=== PATIENT | female | born 2000 | race African-American/Black ===

== ENCOUNTER 2020-03-31 20:18 | Emergency (ER) | payer OTHER ==
[2020-03-31] MEDS ORDERED: NORCO, ANEXSIA 5/325MG TABLET (HYDROcodone/ACETAMINOPHEN) As Ordered ONE (22:18)
[2020-03-31] MEDS ORDERED: NORCO, ANEXSIA 5/325MG TABLET (HYDROcodone/ACETAMINOPHEN) ONE (22:18)
[2020-03-31] MEDS ORDERED: DICYCLOMINE 10 MG CAP ONE (22:20)
[2020-03-31] MEDS ORDERED: DICYCLOMINE 10 MG CAP As Ordered ONE (22:20)
[2020-04-01] MEDS ORDERED: ISOVUE-370 76% 100ML VIAL As Ordered ONE (00:07)
[2020-04-01] MEDS ORDERED: NORCO 5/325MG TABLET (BULK FOR ED) ONE (01:45)
[2020-04-01] MEDS ORDERED: NORCO 5/325MG TABLET (BULK FOR ED) As Ordered ONE (01:45)
[2020-05-18 03:46] LABS: BASO % 0.3 % (0.0-1.0); EOS # 0.2 10^3/uL (0.0-0.5); EOS % 0.9 % (0.0-3.0); HEMATOCRIT 42.2 % (36.0-47.0); HEMOGLOBIN 14.2 g/dl (12.0-15.5); LYMPH # 2.9 10^3/uL (1.5-5.0); MEAN CORPUSCULAR HEMOGLOBIN 30.5 pg (27.0-33.0); MEAN CORPUSCULAR HGB CONC 33.6 g/dl (32.0-36.5); MEAN CORPUSCULAR VOLUME 90.8 fl (80.0-96.0); MONO # 0.8 10^3/uL (0.0-0.8); MONO % 4.9 % (0.0-5.0); NEUTROPHILS # 12.1 10^3/uL (1.5-8.5); NEUTROPHILS % 75.5 % (36.0-66.0); PLATELET COUNT, AUTOMATED 344 10^3/uL (150-450); RED BLOOD COUNT 4.65 10^6/uL (4.00-5.40)
[2020-05-18 03:59] LABS: APPEARANCE, URINE CLEAR (CLEAR); BACTERIA, URINE AUTO NEGATIVE (NEGATIVE); BILIRUBIN, URINE AUTO NEGATIVE (NEGATIVE); BLOOD, URINE BLOOD NEGATIVE (NEGATIVE); COLOR, URINE YELLOW (YELLOW); GLUCOSE, URINE (UA) AUTO NEGATIVE (NEGATIVE); KETONE, URINE AUTO NEGATIVE (NEGATIVE); LEUKOCYTE ESTERASE, URINE AUTO NEGATIVE (NEGATIVE); NITRITE, URINE AUTO NEGATIVE (NEGATIVE); PROTEIN, URINE AUTO NEGATIVE (NEGATIVE); RBC, URINE AUTO 1 /HPF (0-3); SPECIFIC GRAVITY URINE AUTO 1.016 (1.002-1.035); SQUAMOUS EPITHELIAL CELL UR AU 2 /HPF (0-6); UROBILINOGEN, URINE AUTO 0.2 mg/dL (0.0-2.0); WBC, URINE AUTO 0 /HPF (0-3)
[2020-06-09 00:58] LABS: HCG, SERUM QUALITATIVE NEGATIVE (NEGATIVE)
[2020-06-09 01:20] LABS: BLOOD UREA NITROGEN 10 MG/DL (7-18); CARBON DIOXIDE LEVEL 28 MEQ/L (21-32); CHLORIDE LEVEL 105 MEQ/L (98-107); CREATININE FOR GFR 0.81 MG/DL (0.55-1.30); GLUCOSE, FASTING 104 MG/DL (70-100); SODIUM LEVEL 136 MEQ/L (136-145)
== END 2020-04-01 02:00 | disposition home or self-care (01) ==
LOC: M ED 20:18
DX: N83.291 Other ovarian cyst, right side (principal); Z79.3 Long term (current) use of hormonal contraceptives
CPT/HCPCS: 74177; 76856; 80048; 81001; 84703; 85025; 93976; 99284; Q9967

== ENCOUNTER 2020-08-25 12:55 | Emergency (ER) | payer OTHER ==
[~2020-08-25] VITALS: Ht 160 cm; Wt 64.6 kg
[2020-08-25] MEDS ORDERED: KETOROLAC TROMETHAMINE 10 MG TAB PO ONE (15:30)
[2020-08-25 15:50] LABS: BASO % 0.2 % (0.0-1.0); EOS # 0.1 10^3/uL (0.0-0.5); EOS % 1.1 % (0.0-3.0); HEMATOCRIT 43.7 % (36.0-47.0); HEMOGLOBIN 14.8 g/dl (12.0-15.5); LYMPH # 2.9 10^3/uL (1.5-5.0); LYMPH % 27.1 % (24.0-44.0); MEAN CORPUSCULAR HEMOGLOBIN 30.9 pg (27.0-33.0); MEAN CORPUSCULAR HGB CONC 33.9 g/dl (32.0-36.5); MEAN CORPUSCULAR VOLUME 91.2 fl (80.0-96.0); MONO # 0.7 10^3/uL (0.0-0.8); MONO % 6.3 % (0.0-5.0); NEUTROPHILS # 6.9 10^3/uL (1.5-8.5); NEUTROPHILS % 65.2 % (36.0-66.0); PLATELET COUNT, AUTOMATED 367 10^3/uL (150-450); RED BLOOD COUNT 4.79 10^6/uL (4.00-5.40); WHITE BLOOD COUNT 10.6 10^3/uL (4.0-10.0)
--- NOTE | 2020-08-25 16:02 | REP ---
INDICATION: left pelvic pain/ hx cyst COMPARISON: 03/31/2020 TECHNIQUE: Transabdominal pelvic ultrasound with color Doppler evaluation of the ovaries. FINDINGS: Bladder is unremarkable and measures 7.0 x 6.1 x 4.6 cm. Normal anteverted uterus measures . The endometrial complex measures 5 mm thickness. No discrete uterine or endometrial abnormalities are appreciated. Bilateral ovaries are normal in vascularity without evidence for torsion. Right ovary measures 2.1 x 1.7 x 1.7 cm; R I = 0.78. Previously identified right ovarian cyst has resolved. Left ovary measures 7.7 x 6.2 x 6.7 cm and now includes new 6.6 x 5.6 x 6.1 cm complex presumed hemorrhagic cyst; R I = 0.53. No pelvic fluid or adnexal mass lesion otherwise noted. IMPRESSION: Relatively normal appearance to the uterus. Previously noted right ovarian cyst resolved. New large complex left hemorrhagic physiologic cyst. <Electronically signed by Rajeev Zacarias > 08/25/20 0609
[2020-08-25] MEDS ORDERED: KETO10TAB PO (16:13)
[2020-08-25 16:36] VITALS: BP 132/82
== END 2020-08-25 16:40 | disposition home or self-care (01) ==
LOC: M ED 12:55
DX: N83.202 Unspecified ovarian cyst, left side (principal); Z91.018 Allergy to other foods

== ENCOUNTER 2021-03-11 16:42 | Emergency (ER) | payer OTHER ==
[~2021-03-11] VITALS: Ht 162.6 cm; Wt 63.6 kg
[~2021-03-11 16:42] MED LIST: KETO10TAB PO
[2021-03-11 18:21] LABS: BASO % 0.2 % (0.0-1.0); EOS # 0.2 10^3/uL (0.0-0.5); EOS % 1.4 % (0.0-3.0); HEMOGLOBIN 13.3 g/dl (12.0-15.5); LYMPH # 3.4 10^3/uL (1.5-5.0); LYMPH % 25.4 % (24.0-44.0); MEAN CORPUSCULAR HEMOGLOBIN 30.7 pg (27.0-33.0); MEAN CORPUSCULAR HGB CONC 34.1 g/dl (32.0-36.5); MEAN CORPUSCULAR VOLUME 90.1 fl (80.0-96.0); MONO # 0.9 10^3/uL (0.0-0.8); MONO % 6.8 % (2.0-8.0); NEUTROPHILS # 8.8 10^3/uL (1.5-8.5); PLATELET COUNT, AUTOMATED 344 10^3/uL (150-450); RED BLOOD COUNT 4.33 10^6/uL (4.00-5.40); WHITE BLOOD COUNT 13.4 10^3/uL (4.0-10.0)
--- NOTE | 2021-03-11 18:38 | REP ---
INDICATION: bleeding vaginally/cramping. COMPARISON: None. TECHNIQUE: Transvesical scanning FINDINGS: Within the uterus there is an anechoic structure with increased echoes surrounding it consistent with a decidual reaction. Within the gestational sac there is echogenic material consistent with a pole the mean crown-rump length measurement of which is consistent with a 5 week 5 day gestational age. Based on that the EROS is 11/06/2021. Doppler interrogation of the pole shows a heart rate of 103 beats per minute. Also seen in the gestational sac is a yolk sac. There is no evidence of a chorionic or subchorionic abnormality. Within the right ovary there is a 2 cm sized area of increased echoes likely representing a hemorrhagic corpus luteum cyst. There is a trace amount of free fluid. IMPRESSION: Early OB ultrasound as described above. <Electronically signed by Miles Weller > 03/11/21 1222
[2021-03-11 19:16] VITALS: BP 136/71
[2021-03-11 20:18] LABS: GC DNA AMPLIFICATION NEGATIVE (NEGATIVE)
== END 2021-03-11 20:03 | disposition home or self-care (01) ==
LOC: M ED 16:42
DX: O46.91 Antepartum hemorrhage, unspecified, first trimester (principal); O34.81 Maternal care for other abnormalities of pelvic organs, first trimester; O26.891 Other specified pregnancy related conditions, first trimester; R10.9 Unspecified abdominal pain; R11.0 Nausea; Z3A.01 Less than 8 weeks gestation of pregnancy

== ENCOUNTER 2021-06-10 11:10 | Emergency (ER) | payer OTHER ==
[~2021-06-10] VITALS: Ht 162.6 cm; Wt 70.1 kg
--- OUTSIDE RECORDS SUMMARY | 2021-06-10 11:15 | CCD | Continuity of Care Document ---
Author Author [facility] Organization [facility] Address Unknown Phone Unavailable Care Team Providers Care Book Repairer Name Role Phone Evelin Farley Unavailable Unavailable Allergies, Adverse Reactions, Alerts Substance Reaction Status Criticality No Information Medications Medication Instructions Dosage Effective Dates (start - stop) Sta tus Comments No Drug Therapy Prescribed Problems Condition Effective Dates (start - stop) Clinical Status C omments Problems related to unwanted Encounter for oth general cnsl and advice on contraception Other sex counseling Encntr screen for infections w sexl mode of transmiss state, incidental Encounter for test, result positive Human immunodeficiency virus [HIV] counseling Procedures Procedure Date No Information Results Test Name Date and Time Measure Units Reference Range Abnormal Flag St atus Comments No Information Advance Directives Directive Yes / No Effective Date File Name No Information Encounters Encounter Description Practice Location Reason(s) For Visit Diagnose s Date Provider Providers Copied on Encounter [facility], [address] [place] [address], [id number], tel:[phone] KRIS [place] No Information Waldo Evelin. [address] [place] [address], [id number], . tel:[phone] [facility], [address] [place] [address], [id number], tel:[phone] KR[facility] [place] Problems related to unwanted pregnancyEncounter for oth general cnsl and advice on contraceptionOther sex counselingEncntr screen for infections w sexl mode of transmiss state, incidentalEncounter for test, result positiveHuman immunodeficiency virus [HIV] counseling Cathleen Ames. [address] [place], [place], [id number], . tel:[phone] Referring Provider: Magdamanas Connolly, [address] [place], [place], [id number]. tel:[phone] Family History Family Member Diagnosis Age At Onset 1st degree relative No hx of cancer of breast, colon, endome trium or ovary 1st degree relative No hx of coronary heart disease (female <65, male <55) 1st degree relative No hx of venous thromboembolism Immunizations Vaccine Date Status Comments No Information Payers Payer name Insurance type Covered alliance party ID Authorization(s ) Medicaid PENDING Presumptive [facility] Social History Type Description Quantity Date Captured Comments Alcohol Use Details Unknown Caffeine Use Details Unknown Tobacco Use Status No Information Smoking Status Never smoker Sex Female Vital Signs Date / Time: Height Weight BMI Pulse Rate Blood Pressure Temperatu re Respiratory Rate Body Surface Area Head Circumference BMI percentile Pulse Ox In haled Ox No Information Chief Complaint And Reason For Visit No Information Reason For Referral Reason For Referral No Information Plan Of Treatment Date Type Action Status No Information History Of Present Illness Encounter Date Complaint History Of Present I llness No Information Functional Status Date Functional Assessment No Information Medications Administered Medication Instructions Dosage Effective Dates (start - stop) Sta tus Comments No Drug Therapy Prescribed Instructions Date Instruction Additional Informati on No Information Assessments Type Assessment Date No Information Goals Health Concern Goal Type Priority Status Date No Information Medical Equipment Description Device Gallant Device Identifier Effective Patric es (start - stop) Status No Information Mental Status Date Cognitive Assessment No Information Health Concerns Observation Date No Information Concern Status Date No Information Physical Examination Exam Findings Details No Information
--- OUTSIDE RECORDS SUMMARY | 2021-06-10 11:15 | CCD ---
Author Author [facility] Organization [facility] Address Unknown Phone Unavailable Care Team Providers Care Spun Paste Machine Operator Name Role Phone PRYBYLOWSKI, E DANII PA Unavailable Unavailable PRYBYLOWSKI, E DANII PA Unavailable Unavailable PRYBYLOWSKI, E DANII PA Unavailable Unavailable PRYBYLOWSKI, E DANII PA Unavailable Unavailable PRYBYLOWSKI, E DANII PA Unavailable Unavailable PRYBYLOWSKI, E DANII PA Unavailable Unavailable PRYBYLOWSKI, E DANII PA Unavailable Unavailable PRYBYLOWSKI, E DANII PA Unavailable Unavailable PRYBYLOWSKI, E DANII PA Unavailable Unavailable PRYBYLOWSKI, E DANII PA Unavailable Unavailable PRYBYLOWSKI, E DANII PA Unavailable Unavailable PRYBYLOWSKI, E DANII PA Unavailable Unavailable PRYBYLOWSKI, E DANII PA Unavailable Unavailable PRYBYLOWSKI, E DANII PA Unavailable Unavailable PRYBYLOWSKI, E DANII PA Unavailable Unavailable PRYBYLOWSKI, E DANII PA Unavailable Unavailable PRYBYLOWSKI, E DANII PA Unavailable Unavailable Dwello PA PA, Magda Unavailable Unavailable Dwello PA PA, Magda Unavailable Unavailable Dwello PA PA, Magda Unavailable Unavailable Dwello PA PA, Magda Unavailable Unavailable Dwello PA PA, Magda Unavailable Unavailable Dwello PA PA, Magda Unavailable Unavailable Dwello PA PA, Magda Unavailable Unavailable Re-disclosure Warning The records that you are about to access may contain information from federally-assisted alcohol or drug abuse programs. If such information is present, then the following federally mandated warning applies: This information has been disclosed to you from records protected by federal confidentiality rules (42 CFR part 2). The federal rules prohibit you from making any further disclosure of this information unless further disclosure is expressly permitted by the written consent of the person to whom it pertains or as otherwise permitted by 42 CFR part 2. A general authorization for the release of medical or other information is NOT sufficient for this purpose. The Federal rules restrict any use of the information to criminally investigate or prosecute any alcohol or drug abuse patient.The records that you are about to access may contain highly sensitive health information, the redisclosure of which is protected by Article 27-F of the [facility] Public Health law. If you continue you may have access to information: Regarding HIV / AIDS; Provided by facilities licensed or operated by the [facility] Office of Mental Health; or Provided by the [facility] Office for People With Developmental Disabilities. If such information is present, then the following [facility] mandated warning applies: This information has been disclosed to you from confidential records which are protected by state law. State law prohibits you from making any further disclosure of this information without the specific written consent of the person to whom it pertains, or as otherwise permitted by law. Any unauthorized further disclosure in violation of state law may result in a fine or usp sentence or both. A general authorization for the release of medical or other information is NOT sufficient authorization for further disc losure. Encounters Encounter Providers Location Date Indications Data Source(s ) Attender: DANII Campos 03/11/2021 02:36:00 PM EDT - 03/11/2021 02:36:00 PM EDT [facility] ([facility]) OFFICE VISIT, [facility] Attender: Magda levi 03/03/2021 03:15:00 PM EDT - 03/03/2021 03:15:00 PM EDT Human immunodeficiency virus [HIV] counselingEncounter for test, result positive state, incidentalEncntr screen for infections w sexl mode of transmissOther sex counselingEncounter for oth general cnsl and advice on contraceptionProblems related to unwanted [facility] ([facility]) Human immunodeficiency virus [HIV] couns eling Encounter for test, result pos itive state, incidental Encntr screen for infections w sexl mode of transmiss Other sex counseling Encounter for oth general cnsl and advic e on contraception Problems related to unwanted Immunizations Vaccine Date Status Description Data Source(s) COVID-19 VACCINE Pfizer 12/05/2020 12:00:00 AM EDT completed [facility] Vaccine Series Complete: NOThis Data was Submitted to [facility] Via [employer]. Medications No Information Insurance Providers Payer name Policy type / Coverage type Policy ID Covered republican ID Covered republican's relationship to burton Policy Burton Plan Information [facility] ACTIVE DUTY [id number] SP [id number] [facility] HUMANA - O/P [id number] 18 [id number] Problems, Conditions, and Diagnoses No Information Surgeries/Procedures Procedure Description Date Indications Data Source(s) CVR Irrigation Installation Specialist.Svc. STI / H 03/03/2021 12:00:00 AM EDT - 03/03/2021 12:00:00 AM EDT [facility] ([facility]) CVR Irrigation Installation Specialist.Svc. Contraceptive 03/03/2021 12 :00:00 AM EDT - 03/03/2021 12:00:00 AM EDT [facility] ([facility]) CVR Med.Svc. Height/Weight 03/03/2021 12 :00:00 AM EDT - 03/03/2021 12:00:00 AM EDT [facility] ([facility]) CVR Blood Pressure 03/03/2021 12:00:00 AM EDT - 2020 12:00:00 AM EDT [facility] ([facility]) HCS Without Test 03/03/2021 12:00:00 AM EDT - 03/03/20 21 12:00:00 AM EDT [facility] ([facility]) URINE TEST 03/03/2021 12:00:00 AM EDT - 03/03/2021 12:00:00 AM EDT [facility] ([facility]) CAPILLARY BLOOD DRAW 03/03/2021 12:00:00 AM EDT - 03/03/2021 12:00:00 AM EDT [facility] ([facility]) HEMOGLOBIN 03/03/2021 12:00:00 AM EDT - 03/03/2021 1 2:00:00 AM EDT [facility] ([facility]) ROUTINE VENIPUNCTURE 03/03/2021 12:00:00 AM EDT - 03/03/2021 12:00:00 AM EDT [facility] ([facility]) BLOOD TYPING, RH (D) 03/03/2021 12:00:00 AM EDT - 03/03/2021 12:00:00 AM EDT [facility] ([facility]) N.GONORRHOEAE, URINE 03/03/2021 12:00:00 AM EDT - 03/03/2021 12:00:00 AM EDT [facility] ([facility]) CHYLMD TRACH, URINE 03/03/2021 12:00:00 AM EDT - 03/03 12:00:00 AM EDT [facility] ([facility]) OFFICE VISIT, NEW 03/03/2021 12:00:00 AM EDT - 021 12:00:00 AM EDT [facility] ([facility]) Results ID Date Data Source [id number] 03/03/2021 04:04:34 PM EDT [facility] ([facility]) Name Value Range Interpretation Code Description Data Glo rce(s) Supporting Document(s) PositiveLot: [id number]: 08/28/2022 Abnormal (applies to non-numeric results) High Sensitivity Urine Test [facility] ([facility]) ID Date Data Source [id number] 03/03/2021 04:04:02 PM EDT [facility] ([facility]) Name Value Range Interpretation Code Description Data Glo rce(s) Supporting Document(s) 10.40 gm/dL Hemoglobin [facility] ([facility]) ID Date Data Source [id number] 10/16/2020 10:41:00 AM EST [facility] Name Value Range Interpretation Code Description Data Glo rce(s) Supporting Document(s) SARS coronavirus 2 RNA Not Detected [facility] [place] This lab was ordered by [facility] and reported by [facility]. Procedure Social History Code Duration Value Status Description Data Source(s ) Smoking 03/11/2021 12:00:00 AM EDT Never smoker completed Never s moker [facility] ([facility]) Vital Signs ID Date Data Source UNK Name Value Range Interpretation Code Description Data Source(s) Body height 162.56 cm 162.56 cm [facility] Body weight 63.503 kg 63.503 kg [facility]) Systolic blood pressure 110 mm[Hg] 110 mm[Hg] N [facility] ([facility]) Diastolic blood pressure 68 mm[Hg] 68 mm[Hg] [facility] ([facility]) Body mass index (BMI) [Ratio] 24.03 kg/m2 24.03 kg/m2 [facility] ([facility])
[2021-06-10] MEDS ORDERED: PRENTAB53 PO (11:36)
[2021-06-10] MEDS ORDERED: NS 1,000 ML IV ONE (12:45)
[2021-06-10] MEDS ORDERED: ACETAMINOPHEN 500 MG TAB PO ONE (12:55)
[2021-06-10 13:05] LABS: APPEARANCE, URINE CLEAR (CLEAR); BACTERIA, URINE AUTO NEGATIVE (NEGATIVE); BILIRUBIN, URINE AUTO NEGATIVE (NEGATIVE); BLOOD, URINE BLOOD NEGATIVE (NEGATIVE); COLOR, URINE YELLOW (YELLOW); GLUCOSE, URINE (UA) AUTO NEGATIVE (NEGATIVE); KETONE, URINE AUTO NEGATIVE (NEGATIVE); LEUKOCYTE ESTERASE, URINE AUTO NEGATIVE (NEGATIVE); MUCUS, URINE SMALL (NEGATIVE); NITRITE, URINE AUTO NEGATIVE (NEGATIVE); PROTEIN, URINE AUTO NEGATIVE (NEGATIVE); RBC, URINE AUTO 0 /HPF (0-3); SQUAMOUS EPITHELIAL CELL UR AU 1 /HPF (0-6); UROBILINOGEN, URINE AUTO 0.2 mg/dL (0.0-2.0); WBC, URINE AUTO 0 /HPF (0-3)
[2021-06-10 13:13] LABS: BASO % 0.2 % (0.0-1.0); EOS # 0.1 10^3/uL (0.0-0.5); EOS % 0.6 % (0.0-3.0); HEMATOCRIT 37.7 % (36.0-47.0); HEMOGLOBIN 12.9 g/dl (12.0-15.5); LYMPH # 2.1 10^3/uL (1.5-5.0); LYMPH % 11.8 % (24.0-44.0); MEAN CORPUSCULAR HEMOGLOBIN 31.2 pg (27.0-33.0); MEAN CORPUSCULAR HGB CONC 34.2 g/dl (32.0-36.5); MEAN CORPUSCULAR VOLUME 91.3 fl (80.0-96.0); MONO # 0.8 10^3/uL (0.0-0.8); MONO % 4.6 % (2.0-8.0); NEUTROPHILS # 14.6 10^3/uL (1.5-8.5); NEUTROPHILS % 82.2 % (36.0-66.0); PLATELET COUNT, AUTOMATED 312 10^3/uL (150-450); RED BLOOD COUNT 4.13 10^6/uL (4.00-5.40); WHITE BLOOD COUNT 17.8 10^3/uL (4.0-10.0)
--- OUTSIDE RECORDS SUMMARY | 2021-06-10 13:26 | CCD ---
Author Author [facility] Organization [facility] Address Unknown Phone Unavailable Care Team Providers Care Production Solderer Name Role Phone PRYBYLOWSKI, E DANII PA [...] is protected by Article 27-F of the [facility] Public Health law. If you continue you may have access to information: Regarding HIV / AIDS; Provided by facilities licensed or operated by the [facility] Office of Mental Health; or Provided by the [facility] Office for People With Developmental Disabilities. If such information is present, then the following [facility] mandated warning applies: This information has [...] law may result in a fine or intermediate sentence or both. A general authorization for the release of medical or other information is NOT sufficient authorization for further disc losure. Encounters Encounter Providers Location Date Indications Data Source(s ) Attender: DANII Campos 03/11/2021 02:36:00 PM EDT - 03/11/2021 02:36:00 PM EDT [facility]) OutpatientOFFICE VISIT, NEW Attender: Magda levi 03/03/2021 03:15:00 PM EDT - 03/03/2021 03:15:00 PM EDT Human immunodeficiency virus [HIV] counselingEncounter for test, result positive state, incidentalEncntr screen for infections w sexl mode of transmissOther sex counselingEncounter for oth general cnsl and advice on contraceptionProblems related to unwanted [facility] ([facility]) Human immunodeficiency virus [HIV] couns eling Encounter [...] Series Complete: NOThis Data was Submitted to [facility] Via [employer]. Medications No Information Insurance Providers Payer name Policy type / Coverage type Policy ID Covered green party ID Covered green party's relationship to burton Policy Burton Plan Information [facility] ACTIVE DUTY [id number] SP [id number] [facility] HUMANA - O/P [id number] 18 [id number] Problems, Conditions, and Diagnoses No Information Surgeries/Procedures Procedure Description Date Indications Data Source(s) CVR City Sanitarian.Svc. STI / H 03/03/2021 12:00:00 AM EDT - 03/03/2021 12:00:00 AM EDT [facility] ([facility]) CVR City Sanitarian.Svc. Contraceptive 03/03/2021 12 :00:00 AM EDT - 03/03/2021 12:00:00 AM EDT [facility] ([facility]) CVR Med.Svc. Height/Weight 03/03/2021 12 :00:00 AM EDT - 03/03/2021 12:00:00 AM EDT [facility] ([facility]) CVR Blood Pressure 03/03/2021 12:00:00 AM EDT - 2020 12:00:00 AM EDT [facility] ([facility]) HCS Without Test 03/03/2021 12:00:00 AM EDT - 03/03/20 21 12:00:00 AM EDT [facility] ([facility]) URINE TEST 03/03/2021 12:00:00 AM EDT - 03/03/2021 12:00:00 AM EDT [facility] ([facility]) CAPILLARY BLOOD DRAW 03/03/2021 12:00:00 AM EDT - 03/03/2021 12:00:00 AM EDT [facility] ([facility]) HEMOGLOBIN 03/03/2021 12:00:00 AM EDT - 03/03/2021 1 2:00:00 AM EDT [facility] ([facility]) ROUTINE VENIPUNCTURE 03/03/2021 12:00:00 AM EDT - 03/03/2021 12:00:00 AM EDT [facility] ([facility]) BLOOD TYPING, RH (D) 03/03/2021 12:00:00 AM EDT - 03/03/2021 12:00:00 AM EDT [facility] ([facility]) N.GONORRHOEAE, URINE 03/03/2021 12:00:00 AM EDT - 03/03/2021 12:00:00 AM EDT [facility] ([facility]) CHYLMD TRACH, URINE 03/03/2021 12:00:00 AM EDT - 03/03 12:00:00 AM EDT [facility] ([facility]) OFFICE VISIT, NEW 03/03/2021 12:00:00 AM EDT - 021 12:00:00 AM EDT [facility] ([facility]) Results ID Date Data Source [id number] 03/03/2021 04:04:34 PM EDT [facility] ([facility]) Name Value Range Interpretation Code Description Data Glo rce(s) Supporting Document(s) PositiveLot: [id number]: 08/28/2022 Abnormal (applies to non-numeric results) High Sensitivity Urine Test [facility] ([facility]) ID Date Data Source [id number] 03/03/2021 04:04:02 PM EDT [facility] ([facility]) Name Value Range Interpretation Code Description Data Glo rce(s) Supporting Document(s) 10.40 gm/dL Hemoglobin [facility] ([facility]) ID Date Data Source [id number] 10/16/2020 10:41:00 AM EST [facility] Name Value Range Interpretation Code Description Data Glo rce(s) Supporting Document(s) SARS coronavirus 2 RNA Not Detected [facility] [place] This lab was ordered by [facility] and reported by [facility]. Procedure Social History Code Duration Value Status Description Data Source(s ) Smoking 03/11/2021 12:00:00 AM EDT Never smoker completed Never s moker [facility] ([facility]) Vital Signs ID Date Data Source UNK Name Value Range Interpretation Code Description Data Source(s) Body height 162.56 cm 162.56 cm [facility]) Body weight 63.503 kg 63.503 kg [facility]) Systolic blood pressure 110 mm[Hg] 110 mm[Hg] N [facility] ([facility]) Diastolic blood pressure 68 mm[Hg] 68 mm[Hg] [facility] ([facility]) Body mass index (BMI) [Ratio] 24.03 kg/m2 24.03 kg/m2 [facility] ([facility])
[2021-06-10 13:35] LABS: BLOOD UREA NITROGEN 6 MG/DL (7-18); CALCIUM LEVEL 8.8 MG/DL (8.5-10.1); CARBON DIOXIDE LEVEL 26 MEQ/L (21-32); CHLORIDE LEVEL 107 MEQ/L (98-107); CREATININE FOR GFR 0.56 MG/DL (0.55-1.30); GLOMERULAR FILTRATION RATE > 60.0 (>60); GLUCOSE, FASTING 83 MG/DL (70-100); POTASSIUM SERUM 3.9 MEQ/L (3.5-5.1); SODIUM LEVEL 137 MEQ/L (136-145)
--- NOTE | 2021-06-10 14:15 | REP ---
INDICATION: pelvic cramping, 18 weeks gestation, no bleeding COMPARISON: 03/11/2021 TECHNIQUE: Transabdominal obstetrical ultrasound with color Doppler evaluation. FINDINGS: Examination demonstrates a single live intrauterine in cephalic presentation. motion is identified by technologist. Placenta is noted posterior and grade 1 without evidence for placenta previa or abruption. Amniotic fluid volume is normal. Cervix measures 3.2 cm in length and appears closed. Selected gestational age: 18 weeks 3 days with EROS 11/08/2021. FHR equals 147 beats per minute. IMPRESSION: Single live intrauterine in cephalic presentation. Complete anatomical assessment should be performed at 19-20 weeks. <Electronically signed by Rajeev Zacarias > 06/10/21 [id number]
[2021-06-10] MEDS ORDERED: COLA100C5 PO (14:45)
[2021-06-10 14:47] VITALS: BP 134/67
== END 2021-06-10 14:53 | disposition home or self-care (01) ==
LOC: M ED 11:10
DX: O26.892 Other specified pregnancy related conditions, second trimester (principal); M54.50 Low back pain, unspecified; O99.612 Diseases of the digestive system complicating pregnancy, second trimester; K59.00 Constipation, unspecified; O99.112 Other diseases of the blood and blood-forming organs and certain disorders involving the immune mechanism complicating pregnancy, second trimester; D72.829 Elevated white blood cell count, unspecified; Z3A.18 18 weeks gestation of pregnancy; Z79.899 Other long term (current) drug therapy

== ENCOUNTER 2021-07-09 21:26 | Emergency (ER) | payer OTHER ==
[~2021-07-09] VITALS: Ht 162.6 cm; Wt 72.9 kg
[~2021-07-09 21:26] MED LIST changes: +COLA100C5 PO; +PRENTAB53 PO
[2021-07-09 21:28] VITALS: BP 133/75
--- OUTSIDE RECORDS SUMMARY | 2021-07-09 21:38 | CCD ---
Author Author [facility] Organization [facility] Address Unknown Phone Unavailable Care Team Providers Care Master [place] Name Role Phone PRYBYLOWSKI, E DANII PA [...] is protected by Article 27-F of the [facility] Public Health law. If you continue you may have access to information: Regarding HIV / AIDS; Provided by facilities licensed or operated by the [facility] Office of Mental Health; or Provided by the [facility] Office for People With Developmental Disabilities. If such information is present, then the following [facility] mandated warning applies: This information has [...] law may result in a fine or snf sentence or both. A general authorization for the release of medical or other information is NOT sufficient authorization for further disc losure. Encounters Encounter Providers Location Date Indications Data Source(s ) Attender: DANII Campos 03/11/2021 02:36:00 PM EDT - 03/11/2021 02:36:00 PM EDT [facility] ([facility]) OFFICE VISIT, [facility] Attender: Magda levi 03/03/2021 03:15:00 PM EDT - 03/03/2021 03:15:00 PM EDT Human immunodeficiency virus [HIV] counselingEncounter for test, result positive state, incidentalEncntr screen for infections w sexl mode of transmissOther sex counselingEncounter for oth general cnsl and advice on contraceptionProblems related to unwanted [facility] ([facility]) Human immunodeficiency virus [HIV] couns eling [...] Series Complete: NOThis Data was Submitted to [facility] Via [facility]. Medications No Information Insurance Providers Payer name Policy type / Coverage type Policy ID Covered constitution party ID Covered constitution party's relationship to burton Policy Burton Plan Information [facility] [facility] [id number] SP [id number] [facility] HUMA[employer] - O/P [id number] 18 [id number] Problems, Conditions, and Diagnoses No Information Surgeries/Procedures Procedure Description Date Indications Data Source(s) CVR Alumnae Secretary.Svc. STI / H 03/03/2021 12:00:00 AM EDT - 03/03/2021 12:00:00 AM EDT [facility] ([facility]) CVR Alumnae Secretary.Svc. Contraceptive 03/03/2021 12 :00:00 AM EDT - 03/03/2021 12:00:00 AM EDT [facility] ([facility]) CVR Med.Svc. Height/Weight 03/03/2021 12 :00:00 AM EDT - 03/03/2021 12:00:00 AM EDT [facility] ([facility]) CVR Blood Pressure 03/03/2021 12:00:00 AM EDT - 2020 12:00:00 AM EDT [facility] ([facility]) HCS Without Test 03/03/2021 12:00:00 AM EDT - 03/03/20 21 12:00:00 AM EDT [facility] ([facility]) URINE TEST 03/03/2021 12:00:00 AM EDT - 03/03/2021 12:00:00 AM EDT [facility] ([facility]) CAPILLARY BLOOD DRAW 03/03/2021 12:00:00 AM EDT - 03/03/2021 12:00:00 AM EDT [facility] ([facility]) HEMOGLOBIN 03/03/2021 12:00:00 AM EDT - 03/03/2021 1 2:00:00 AM EDT [facility] ([facility]) ROUTINE VENIPUNCTURE 03/03/2021 12:00:00 AM EDT - 03/03/2021 12:00:00 AM EDT [facility] ([facility]) BLOOD TYPING, RH (D) 03/03/2021 12:00:00 AM EDT - 03/03/2021 12:00:00 AM EDT [facility] ([facility]) N.GONORRHOEAE, URINE 03/03/2021 12:00:00 AM EDT - 03/03/2021 12:00:00 AM EDT [facility] ([facility]) CHYLMD TRACH, URINE 03/03/2021 12:00:00 AM EDT - 03/03 12:00:00 AM EDT [facility] ([facility]) OFFICE VISIT, NEW 03/03/2021 12:00:00 AM EDT - 021 12:00:00 AM EDT [facility] ([facility]) Results ID Date Data Source [id number] 03/03/2021 04:04:34 PM EDT [facility] ([facility]) Name Value Range Interpretation Code Description Data Glo rce(s) Supporting Document(s) PositiveLot: [id number]: 08/28/2022 Abnormal (applies to non-numeric results) High Sensitivity Urine Test [facility] ([facility]) ID Date Data Source [id number] 03/03/2021 04:04:02 PM EDT [facility] ([facility]) Name Value Range Interpretation Code Description Data Glo rce(s) Supporting Document(s) 10.40 gm/dL Hemoglobin [facility] ([facility]) ID Date Data Source [id number] 10/16/2020 10:41:00 AM EST [facility] Name Value Range Interpretation Code Description Data Glo rce(s) Supporting Document(s) SARS coronavirus 2 RNA Not Detected [facility] [place] This lab was ordered by [facility] and reported by [facility]. Procedure Social History Code Duration Value Status Description Data Source(s ) Smoking 03/11/2021 12:00:00 AM EDT Never smoker completed Never s moker [facility] ([facility]) Vital Signs ID Date Data Source UNK Name Value Range Interpretation Code Description Data Source(s) Body height 162.56 cm 162.56 cm [facility]) Body weight 63.503 kg 63.503 kg [facility] ([facility]) Systolic blood pressure 110 mm[Hg] 110 mm[Hg] N [facility] ([facility]) Diastolic blood pressure 68 mm[Hg] 68 mm[Hg] [facility] ([facility]) Body mass index (BMI) [Ratio] 24.03 kg/m2 24.03 kg/m2 [facility] ([facility])
--- OUTSIDE RECORDS SUMMARY | 2021-07-10 02:31 | CCD ---
Author Author [facility] Organization [facility] Address Unknown Phone Unavailable Care Team Providers Care Employee Relations Specialist Name Role Phone PRYBYLOWSKI, E DANII PA [...] is protected by Article 27-F of the [facility] Public Health law. If you continue you may have access to information: Regarding HIV / AIDS; Provided by facilities licensed or operated by the [facility] Office of Mental Health; or Provided by the [facility] Office for People With Developmental Disabilities. If such information is present, then the following [facility] mandated warning applies: This information has [...] law may result in a fine or prison sentence or both. A general authorization for the release of medical or other information is NOT sufficient authorization for further disc losure. Encounters Encounter Providers Location Date Indications Data Source(s ) Attender: DANII Campos 03/11/2021 02:36:00 PM EDT - 03/11/2021 02:36:00 PM EDT [facility] ([facility]) OFFICE VISIT, [facility] Attender: Magda levi 03/03/2021 03:15:00 PM EDT - 03/03/2021 03:15:00 PM EDT Human immunodeficiency virus [HIV] counselingEncounter for test, result positive state, incidentalEncntr screen for infections w sexl mode of transmissOther sex counselingEncounter for oth general cnsl and advice on contraceptionProblems related to unwanted [facility] ([facility]) Human immunodeficiency virus [HIV] couns eling [...] Series Complete: NOThis Data was Submitted to [facility] Via [facility]. Medications No Information Insurance Providers Payer name Policy type / Coverage type Policy ID Covered republican ID Covered republican's relationship to burton Policy Burton Plan Information [facility] ACTIVE DUTY [id number] SP [id number] [facility] HUMANA - O/P [id number] 18 [id number] Problems, Conditions, and Diagnoses No Information Surgeries/Procedures Procedure Description Date Indications Data Source(s) CVR Mat Inspector.Svc. STI / H 03/03/2021 12:00:00 AM EDT - 03/03/2021 12:00:00 AM EDT [facility] ([facility]) CVR Mat Inspector.Svc. Contraceptive 03/03/2021 12 :00:00 AM EDT - 03/03/2021 12:00:00 AM EDT [facility] ([facility]) CVR Med.Svc. Height/Weight 03/03/2021 12 :00:00 AM EDT - 03/03/2021 12:00:00 AM EDT [facility] ([facility]) CVR Blood Pressure 03/03/2021 12:00:00 AM EDT - 2020 12:00:00 AM EDT [facility] ([facility]) HCS Without Test 03/03/2021 12:00:00 AM EDT - 03/03/20 21 12:00:00 AM EDT [facility] ([facility]) URINE TEST 03/03/2021 12:00:00 AM EDT - 03/03/2021 12:00:00 AM EDT [facility] ([facility]) CAPILLARY BLOOD DRAW 03/03/2021 12:00:00 AM EDT - 03/03/2021 12:00:00 AM EDT [facility] ([facility]) HEMOGLOBIN 03/03/2021 12:00:00 AM EDT - 03/03/2021 1 2:00:00 AM EDT [facility] ([facility]) ROUTINE VENIPUNCTURE 03/03/2021 12:00:00 AM EDT - 03/03/2021 12:00:00 AM EDT [facility] ([facility]) BLOOD TYPING, RH (D) 03/03/2021 12:00:00 AM EDT - 03/03/2021 12:00:00 AM EDT [facility] ([facility]) N.GONORRHOEAE, URINE 03/03/2021 12:00:00 AM EDT - 03/03/2021 12:00:00 AM EDT [facility] ([facility]) CHYLMD TRACH, URINE 03/03/2021 12:00:00 AM EDT - 03/03 12:00:00 AM EDT [facility] ([facility]) OFFICE VISIT, NEW 03/03/2021 12:00:00 AM EDT - 021 12:00:00 AM EDT [facility] ([facility]) Results ID Date Data Source [id number] 03/03/2021 04:04:34 PM EDT [facility] ([facility]) Name Value Range Interpretation Code Description Data Glo rce(s) Supporting Document(s) PositiveLot: [id number]: 08/28/2022 Abnormal (applies to non-numeric results) High Sensitivity Urine Test [facility] ([facility]) ID Date Data Source [id number] 03/03/2021 04:04:02 PM EDT [facility] ([facility]) Name Value Range Interpretation Code Description Data Glo rce(s) Supporting Document(s) 10.40 gm/dL Hemoglobin [facility] ([facility]) ID Date Data Source [id number] 10/16/2020 10:41:00 AM EST [facility] Name Value Range Interpretation Code Description Data Glo rce(s) Supporting Document(s) SARS coronavirus 2 RNA Not Detected [facility] [place] This lab was ordered by [facility] and reported by [facility]. Procedure Social History Code Duration Value Status Description Data Source(s ) Smoking 03/11/2021 12:00:00 AM EDT Never smoker completed Never s moker [facility] ([facility]) Vital Signs ID Date Data Source UNK Name Value Range Interpretation Code Description Data Source(s) Body height 162.56 cm 162.56 cm [facility]) Body weight 63.503 kg 63.503 kg [facility]) Systolic blood pressure 110 mm[Hg] 110 mm[Hg] N [facility] ([facility]) Diastolic blood pressure 68 mm[Hg] 68 mm[Hg] [facility] ([facility]) Body mass index (BMI) [Ratio] 24.03 kg/m2 24.03 kg/m2 [facility] ([facility])
--- NOTE | 2021-07-11 07:00 | ECGEPIP ---
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
== END 2021-07-10 02:28 | disposition left against medical advice (07) ==
LOC: M ED 21:26
DX: Z53.21 Procedure and treatment not carried out due to patient leaving prior to being seen by health care provider (principal)

== ENCOUNTER 2021-10-16 10:37 | Inpatient (IN) | payer OTHER ==
[2021-10-16] VITALS (23 sets, daily range): BP systolic 132–177; BP diastolic 76–108
[~2021-10-16] VITALS: Ht 162.6 cm; Wt 82.9 kg
[2021-10-16 11:25] LABS: HEMATOCRIT 38.6 % (36.0-47.0); HEMOGLOBIN 13.4 g/dl (12.0-15.5); MEAN CORPUSCULAR HEMOGLOBIN 31.7 pg (27.0-33.0); MEAN CORPUSCULAR HGB CONC 34.7 g/dl (32.0-36.5); MEAN CORPUSCULAR VOLUME 91.3 fl (80.0-96.0); PLATELET COUNT, AUTOMATED 111 10^3/uL (150-450); RED BLOOD COUNT 4.23 10^6/uL (4.00-5.40); WHITE BLOOD COUNT 18.4 10^3/uL (4.0-10.0)
[2021-10-16 11:49] LABS: ALT/SGPT 91 U/L (12-78); CREATININE FOR GFR 0.67 MG/DL (0.55-1.30); GLOMERULAR FILTRATION RATE > 60.0 (>60); LDH LACTATE DEHYDROGENASE 269 U/L (84-246); URIC ACID 4.1 MG/DL (2.6-6.0)
[2021-10-16] MEDS ORDERED: MAG Sulf (L&D) 4 GM/100 ML 4 GM in IV 1 EA IV ONE (11:50)
[2021-10-16 11:51] LABS: CREATININE,RANDOM URINE 43.7 MG/DL; TOTAL PROTEIN,RANDOM URINE 329.8 MG/DL (0.0-12.0)
[2021-10-16] MEDS: LR 1,000 ML IV SCH (12:27)
[2021-10-16] MEDS: BETAMETHASONE SOLUSPAN 6MG/ML 5ML VIAL (J0702 PER 3MG) IM SCH ×2 (12:30→18:10)
[2021-10-16] MEDS: MAG Sulf (OBGYN) 20GM/500ML 20,000 MG in IV 1 EA IV SCH ×2 (12:55→21:45)
[2021-10-16] MEDS ORDERED: KETOROLAC 60MG 2ML VIAL As Ordered ONE (13:55)
[2021-10-16] MEDS ORDERED: MORPHINE PRES-FREE INJ 10 MG/10 ML VIAL (J2274) As Ordered ONE (13:55)
[2021-10-16] MEDS ORDERED: BICITRA 30ML SOLN UDC PO ONE (14:00)
[2021-10-16] MEDS ORDERED: hydrALAZINE 20MG/ML 1ML VIAL (J0360 PER 20MG) IV ONE (14:00)
[2021-10-16] MEDS ORDERED: ceFAZolin SOD 2 GM in IV 1 EA IV ONE (14:00)
[2021-10-16] MEDS ORDERED: LABETALOL 100MG/20ML VIAL IV STA ×3 (14:28→19:16)
[2021-10-16] MEDS ORDERED: LABETALOL 100MG/20ML VIAL As Ordered ONE (14:29)
[2021-10-16] MEDS ORDERED: TRANEXAMIC ACID INJection 1,000 MG in NS 100 ML IV PRN (14:30)
[2021-10-16] MEDS ORDERED: ACETAMINOPHEN 1000MG 100ML IV BTL (OFIRMEV) (J0131 PER 10MG) As Ordered ONE ×2 (15:29→15:49)
[2021-10-16] MEDS ORDERED: ONDANSETRON 4MG/2ML VIAL As Ordered ONE (15:29)
[2021-10-16] MEDS ORDERED: fentaNYL 100 MCG/2 ML INJECTION As Ordered ONE (15:32)
[2021-10-16] MEDS ORDERED: OXYTOCIN INJ 10 UNITS/ML VIAL (J2590) As Ordered ONE (15:44)
[2021-10-16 15:46] LABS: CORD GAS ABE V -2.8; CORD GAS HCO3 V 24.6 MEQ/L; CORD GAS PCO2 V 52.5 mmHg; CORD GAS PH V 7.289 UNITS; CORD GAS PO2 V 34.1 mmHg; CORD GAS SBC V 21.7 MEQ/L; CORD GAS TCO2 V 26.2 MEQ/L
[2021-10-16 15:48] LABS: CORD GAS ABE A -3.5; CORD GAS HCO3 A 23.2 MEQ/L; CORD GAS O2 SAT A 61.9 %; CORD GAS PH A 7.302 UNITS; CORD GAS SBC A 20.8 MEQ/L; CORD GAS TCO2 A 24.7 MEQ/L
[2021-10-16] MEDS ORDERED: RHOGAM 300 MCG (1500 IU) INJ (J2790) IM SCH (16:20)
[2021-10-16] MEDS ORDERED: ONDANSETRON 4MG/2ML VIAL IV PRN ×2 (16:20→16:35)
[2021-10-16] MEDS ORDERED: SIMETHICONE 80MG CHEW TAB PO PRN (16:20)
[2021-10-16] MEDS ORDERED: ONDANSETRON 4 MG TAB PO PRN (16:20)
[2021-10-16] MEDS ORDERED: oxyCODONE 5MG TAB PO PRN (16:20)
[2021-10-16] MEDS ORDERED: MORPHINE 4 MG/ML 1ML VIAL/SYRINGE (J2270) IV PRN (16:20)
[2021-10-16] MEDS ORDERED: MEASLES,MUMPS,RUBELLA VACCINE INJ (MMR-II) (90707) SC SCH (16:20)
[2021-10-16] MEDS ORDERED: OXYTOCIN DRIP 30 UNITS in IV 1 EA IV SCH (16:30)
[2021-10-16] MEDS ORDERED: LR 1,000 ML IV SCH (16:35)
[2021-10-16] MEDS ORDERED: fentaNYL 100 MCG/2 ML INJECTION IV PRN (16:35)
[2021-10-16] MEDS ORDERED: METOCLOPRAMIDE INJ 10MG/2ML VIAL (J2765 PER 1) IV PRN (16:35)
[2021-10-16] MEDS ORDERED: PERCOCET 5MG/325MG TAB PO PRN (16:35)
[2021-10-16] MEDS ORDERED: TRANEXAMIC ACID 100 MG/ML 10ML VIAL ONE (16:47)
[2021-10-16] MEDS ORDERED: OXYTOCIN 30 UNITS IN 0.9% NaCl 500ML IV BAG (J2590) As Ordered ONE (17:00)
[2021-10-16] MEDS: oxyCODONE 5MG TAB PO PRN (18:18)
[2021-10-16] MEDS: NIFEdipine 30 MG XL TAB PO SCH (20:45)
[2021-10-16 21:25] LABS: HEMATOCRIT 37.5 % (36.0-47.0); MEAN CORPUSCULAR HEMOGLOBIN 31.6 pg (27.0-33.0); MEAN CORPUSCULAR HGB CONC 34.7 g/dl (32.0-36.5); PLATELET COUNT, AUTOMATED 119 10^3/uL (150-450); RED BLOOD COUNT 4.12 10^6/uL (4.00-5.40); WHITE BLOOD COUNT 27.5 10^3/uL (4.0-10.0)
[2021-10-16] MEDS: KETOROLAC 30 MG/ML 1ML VIAL IV SCH (21:46)
[2021-10-16 21:51] LABS: ALBUMIN 2.3 GM/DL (3.2-5.2); ALT/SGPT 87 U/L (12-78); BILIRUBIN,TOTAL 0.6 MG/DL (0.2-1.0); BLOOD UREA NITROGEN 5 MG/DL (7-18); CALCIUM LEVEL 7.7 MG/DL (8.5-10.1); CARBON DIOXIDE LEVEL 21 MEQ/L (21-32); CHLORIDE LEVEL 107 MEQ/L (98-107); GLOMERULAR FILTRATION RATE > 60.0 (>60); GLUCOSE, FASTING 140 MG/DL (70-100); MAGNESIUM LEVEL 5.4 MG/DL (1.8-2.4); POTASSIUM SERUM 4.3 MEQ/L (3.5-5.1); SODIUM LEVEL 137 MEQ/L (136-145); TOTAL PROTEIN 6.9 GM/DL (6.4-8.2)
[2021-10-17] VITALS (19 sets, daily range): BP systolic 128–150; BP diastolic 64–96
[2021-10-17] MEDS: KETOROLAC 30 MG/ML 1ML VIAL IV SCH ×2 (03:30→09:27)
[2021-10-17] MEDS: oxyCODONE 5MG TAB PO PRN ×3 (05:18→19:51)
[2021-10-17 05:29] LABS: BASO # 0.1 10^3/uL (0.0-0.2); BASO % 0.2 % (0.0-1.0); HEMATOCRIT 34.7 % (36.0-47.0); LYMPH # 1.6 10^3/uL (1.5-5.0); MEAN CORPUSCULAR HEMOGLOBIN 31.7 pg (27.0-33.0); MEAN CORPUSCULAR HGB CONC 34.6 g/dl (32.0-36.5); MEAN CORPUSCULAR VOLUME 91.6 fl (80.0-96.0); MONO # 0.7 10^3/uL (0.0-0.8); MONO % 2.3 % (2.0-8.0); NEUTROPHILS # 28.2 10^3/uL (1.5-8.5); NEUTROPHILS % 91.9 % (36.0-66.0); PLATELET COUNT, AUTOMATED 139 10^3/uL (150-450); RED BLOOD COUNT 3.79 10^6/uL (4.00-5.40)
[2021-10-17 05:31] LABS: WHITE BLOOD COUNT 30.7 10^3/uL (4.0-10.0)
[2021-10-17 06:01] LABS: ALBUMIN 2.2 GM/DL (3.2-5.2); ALT/SGPT 79 U/L (12-78); BILIRUBIN,TOTAL 0.7 MG/DL (0.2-1.0); BLOOD UREA NITROGEN 5 MG/DL (7-18); CALCIUM LEVEL 7.3 MG/DL (8.5-10.1); CARBON DIOXIDE LEVEL 22 MEQ/L (21-32); CHLORIDE LEVEL 104 MEQ/L (98-107); CREATININE FOR GFR 0.65 MG/DL (0.55-1.30); GLOMERULAR FILTRATION RATE > 60.0 (>60); GLUCOSE, FASTING 108 MG/DL (70-100); POTASSIUM SERUM 4.7 MEQ/L (3.5-5.1); SODIUM LEVEL 135 MEQ/L (136-145); TOTAL PROTEIN 6.8 GM/DL (6.4-8.2)
[2021-10-17] MEDS: MAG Sulf (OBGYN) 20GM/500ML 20,000 MG in IV 1 EA IV SCH (07:56)
[2021-10-17] MEDS: LR 1,000 ML IV SCH (07:57)
[2021-10-17] MEDS: PRENATAL VITAMINS CHEWABLE TABLET PO SCH (09:27)
[2021-10-17 13:43] LABS: HEMATOCRIT 33.9 % (36.0-47.0); HEMOGLOBIN 11.9 g/dl (12.0-15.5); MEAN CORPUSCULAR HEMOGLOBIN 31.8 pg (27.0-33.0); MEAN CORPUSCULAR HGB CONC 35.1 g/dl (32.0-36.5); MEAN CORPUSCULAR VOLUME 90.6 fl (80.0-96.0); PLATELET COUNT, AUTOMATED 168 10^3/uL (150-450); RED BLOOD COUNT 3.74 10^6/uL (4.00-5.40)
[2021-10-17 14:09] LABS: ALBUMIN 2.4 GM/DL (3.2-5.2); ALT/SGPT 79 U/L (12-78); BILIRUBIN,TOTAL 0.5 MG/DL (0.2-1.0); BLOOD UREA NITROGEN 8 MG/DL (7-18); CALCIUM LEVEL 7.3 MG/DL (8.5-10.1); CARBON DIOXIDE LEVEL 25 MEQ/L (21-32); CHLORIDE LEVEL 103 MEQ/L (98-107); CREATININE FOR GFR 0.64 MG/DL (0.55-1.30); GLOMERULAR FILTRATION RATE > 60.0 (>60); GLUCOSE, FASTING 111 MG/DL (70-100); LDH LACTATE DEHYDROGENASE 269 U/L (84-246); POTASSIUM SERUM 4.2 MEQ/L (3.5-5.1); SODIUM LEVEL 136 MEQ/L (136-145); TOTAL PROTEIN 6.8 GM/DL (6.4-8.2)
[2021-10-17] MEDS ORDERED: ceFAZolin 2 GM/D5W 50 ML IV BAG (J0690 PER 500MG) As Ordered ONE (14:11)
[2021-10-17] MEDS ORDERED: BICITRA 30ML SOLN UDC As Ordered ONE (14:13)
[2021-10-17] MEDS ORDERED: AZITHROMYCIN INJ 500MG VIAL As Ordered ONE (14:13)
[2021-10-17] MEDS: IBUPROFEN 800 MG TAB PO SCH (17:29)
[2021-10-17] MEDS: DOCUSATE SODIUM 100MG CAPSULE PO PRN (21:00)
[2021-10-17] MEDS: NIFEdipine 30 MG XL TAB PO SCH (21:00)
[2021-10-18] VITALS (7 sets, daily range): BP systolic 136–147; BP diastolic 81–91
[2021-10-18] MEDS: IBUPROFEN 800 MG TAB PO SCH ×3 (01:05→17:10)
[2021-10-18] MEDS: oxyCODONE 5MG TAB PO PRN ×4 (02:03→20:04)
[2021-10-18] MEDS: PRENATAL VITAMINS CHEWABLE TABLET PO SCH (08:01)
[2021-10-18] MEDS: DOCUSATE SODIUM 100MG CAPSULE PO PRN (21:07)
[2021-10-18] MEDS: NIFEdipine 30 MG XL TAB PO SCH (21:08)
[2021-10-19] MEDS: IBUPROFEN 800 MG TAB PO SCH ×2 (01:05→08:10)
[2021-10-19] MEDS: oxyCODONE 5MG TAB PO PRN ×2 (02:05→08:10)
[2021-10-19 02:06] VITALS: BP 140/77
[2021-10-19 06:00] VITALS: BP 145/91
[2021-10-19] MEDS: DOCUSATE SODIUM 100MG CAPSULE PO PRN (08:11)
[2021-10-19] MEDS: PRENATAL VITAMINS CHEWABLE TABLET PO SCH (08:11)
== END 2021-10-19 13:00 | disposition home or self-care (01) | DRG 773 ==
LOC: M LDO 10:37 → M LDI 11:46 → M OBS 10-17 17:37
PROVIDERS: ADMIT Obstetrics & Gynecology; ATTEND Obstetrics & Gynecology
PROC: 10D00Z1 Extraction of Products of Conception, Low, Open Approach (ICD-10-PCS; principal; 2021-10-16 14:21)
DX: O14.24 HELLP syndrome, complicating childbirth (principal); Z37.0 Single live birth; Z3A.36 36 weeks gestation of pregnancy; O36.5930 Maternal care for other known or suspected poor fetal growth, third trimester, not applicable or unspecified; O60.14X0 Preterm labor third trimester with preterm delivery third trimester, not applicable or unspecified

== ENCOUNTER 2022-03-21 18:35 | Emergency (ER) | payer OTHER ==
[~2022-03-21] VITALS: Ht 162.6 cm; Wt 74.3 kg
[2022-03-21 18:36] VITALS: BP 139/78
[2022-03-21 20:09] LABS: RSV AMPLIFICATION NEGATIVE (NEGATIVE)
== END 2022-03-21 21:34 | disposition home or self-care (01) ==
LOC: M ED 18:35
DX: J06.9 Acute upper respiratory infection, unspecified (principal); Z87.42 Personal history of other diseases of the female genital tract; Z91.018 Allergy to other foods

== ENCOUNTER 2022-03-31 18:11 | Emergency (ER) | payer OTHER ==
[~2022-03-31] VITALS: Ht 162.6 cm; Wt 74.3 kg
[2022-03-31] MEDS ORDERED: ACETAMINOPHEN 325 MG TAB PO ONE (20:45)
[2022-03-31 23:23] VITALS: BP 135/85
== END 2022-03-31 23:24 | disposition home or self-care (01) ==
LOC: M ED 18:11
DX: U07.1 COVID-19 (principal); Z91.010 Allergy to peanuts